=== PATIENT | female | born 1980 | race Caucasian/White ===

== ENCOUNTER → 2019-06-05 | Day surgery (SDC) | payer OTHER ==
--- NOTE | 2019-06-04 12:55 | Pre Op History & Physical ---
ANTICIPATED DATE OF SURGERY: June 05, 2019. CHIEF COMPLAINT: Recurrent otitis media, recurrent eustachian tube dysfunction. HISTORY OF PRESENT ILLNESS: This 38 years old female has persistent pressure problem in the ear. Her condition has been treated with multiple antibiotics and topical nasal steroid with no improvement. The patient had multiple ear infections all of her life. She has four sets of tubes when she was younger and adenoidectomy. The patient has decreased hearing. She complained of otalgia and pressure feeling in the ear. She has high-pitched tinnitus. She denies any vertigo. Audiogram that was done showed the patient has mild conductive hearing loss with speech discrimination of 100% bilaterally. Her hearing loss was symmetrical. Her tympanograms showed negative pressure in both ears. REVIEW OF SYSTEMS: Showed no recent cardiovascular, respiratory, or GI problem. PAST MEDICAL HISTORY: The patient has no significant medical problem. PAST SURGICAL HISTORY: She has previous myringotomy and tubes x4 and adenoidectomy. The patient had previous and tubal ligation. The patient has sinuplasty. ALLERGIES: SHE IS ALLERGIC TO ASPIRIN AND NARCOTIC. MEDICATION: She is on Singulair, Tiffanie-D, levothyroxine, and Flonase. SOCIAL HISTORY: She is a nonsmoker and nondrinker. FAMILY HISTORY: Noncontributory. PHYSICAL EXAMINATION: VITAL SIGNS: On examination, patient's vital signs were within normal limits. HEENT: Ear exam show negative pressure in both sides with effusion in both ears. Nasal exam showed hypertrophy of the inferior turbinates. Oropharynx and oral cavity showed no obvious abnormality. NECK: Showed no lymph node or thyroid palpable. CHEST: Showed good air entry bilaterally. Oropharynx and oral cavity show 2+ tonsils bilaterally with Mallampati level 2. CARDIOVASCULAR: Showed S1 and S2. No murmur noted. ASSESSMENT AND PLAN: Mrs. Arita has recurrent otitis media, chronic eustachian tube problem, which has been resistant to conservative therapy. The suggested treatment is bilateral myringotomy and tubes with T-tube insertion and other necessary procedure. Complication of procedure includes, but not limited to bleeding, infection, TM perforation, persistent drainage from the ear, hearing loss, persistent recurrence of the problem. The alternative will be continued observation, continued antibiotic therapy, topical nasal steroid therapy, systemic steroid therapy, bilateral myringotomy and tubes in the office setting. The patient has elected to undergo the surgical procedure. MD TRINIDAD Valenzuela/APOORVA /[id number]
[~2019-06-05] MED LIST: ALLEGRA-D 24 H1 EACH PO; CEFUROXIME500 MG PO; DEXAMETHASONE SOD PHOS INJ 4 MG/ML VIAL ONE; FLUTICASONE P15.8 ML; LEVOTHYROXINE112 MCG PO; LIDOCAINE HCL 2% LOCAL INJ 5 ML SDV VIAL INJ ONE; METOCLOPRAMIDE HCL 10 MG/2ML VIAL ONE; MIDAZOLAM HCL 2 MG/2 ML VIAL ONE; OFLOXACIN 0.3% (OTIC SOL) 5 ML BTL ONE; ONDANSETRON HCL INJ 2MG/ML 2ML 2 MG/ML VIAL ONE; PROPOFOL IV EMULSION 10 MG/ML 20 ML VIAL ONE; SEVOFLURANE INHAL SOLN 250 ML PEN BTL ONE; SINGULAIR10 MG PO
[2019-06-05 10:24] VITALS: BP 127/79
--- NOTE | 2019-06-05 16:20 | Operative Report ---
DATE OF PROCEDURE: 06/05/2019 SURGEON: Rodriguez Zhu MD PREOPERATIVE DIAGNOSES: Recurrent otitis media and eustachian tube dysfunction. POSTOPERATIVE DIAGNOSIS: Recurrent otitis media and eustachian tube dysfunction. PROCEDURE PERFORMED: Bilateral myringotomy and tubes with T-tube insertion. ANESTHESIA: Anesthesiology group. INDICATIONS: This 38-year-old female has recurrent ear infection. The patient has been treated with multiple antibiotics with no improvement. The patient had multiple tubes insertion in the ear before and recently, the tube has been extruded over the past few years and has been having a persistent pressure in the ear. On examination, she was noted to have tympanosclerosis bilaterally with negative pressure on both sides. It was decided bilateral myringotomy and tubes, and other necessary procedure will be beneficial for her. DESCRIPTION OF PROCEDURE: The patient was taken to operating room, put under general anesthesia. Right ear was examined. The ear canal was debrided. The myringotomy was done in the anterior superior quadrant just anterior to the tympanosclerotic plaque. A T-tube was inserted. The left ear was examined. The ear canal was debrided. The myringotomy was done in the anterior superior quadrant again on the left side, again anterior to tympanosclerotic plaque and T- tube was inserted. The patient tolerated the above procedure well with minimal blood loss. She was able to be transferred to recovery room in stable condition. Rodriguez Zhu MD DKH/MODL /[id number]
== END | disposition home or self-care (01) ==
LOC: OR 06:23
PROVIDERS: ATTEND Otolaryngology Otolaryngology/Facial Plastic Surgery
DX: H66.93 Otitis media, unspecified, bilateral (principal); H74.03 Tympanosclerosis, bilateral; H69.83 Other specified disorders of Eustachian tube, bilateral; J45.909 Unspecified asthma, uncomplicated; Z88.6 Allergy status to analgesic agent
CPT/HCPCS: 69436; 81025; J1100; J2001; J2250; J2405; J2704; J2765